=== PATIENT | male | born 1990 | race Caucasian/White ===

== ENCOUNTER 2022-01-25 13:53 | Emergency (ER) | payer SELFPAY ==
--- NOTE | 2022-01-25 14:07 | NUR ---
Called pt to triage with no answer. Pt not outside in surrounding areas.
--- NOTE | 2022-01-25 14:07 | NUR ---
PATIENT LEFT WITHOUT BEING SEEN BY . NO FURTHER CARE PROVIDED FOR PATIENT.
--- NOTE | 2022-01-25 14:24 | NUR ---
PT TAKEN TO LOBBY IN WHEELCHAIR WITH MOTHER
--- NOTE | 2022-01-25 14:45 | NUR ---
called to triage no answer
[2022-01-25] MEDS ORDERED: IBUP-1842 PO (17:13)
== END 2022-01-25 14:07 | disposition left against medical advice (07) ==
LOC: MED 13:53
DX: M25.539 Pain in unspecified wrist (principal); Z53.21 Procedure and treatment not carried out due to patient leaving prior to being seen by health care provider

== ENCOUNTER 2022-01-25 15:39 | Emergency (ER) | payer SELFPAY ==
[~2022-01-25] VITALS: Ht 182.9 cm; Wt 81.6 kg
[2022-01-25 15:48] VITALS: BP 125/72
[2022-01-25] MEDS ORDERED: KETOROLAC 30 MG/ML VIAL IM ONE (16:50)
[2022-01-25] MEDS ORDERED: IBUP-1842 PO (17:13)
--- NOTE | 2022-01-25 17:28 | NUR ---
PT WAS GIVEN A LEFT THUMB SPICA SPLINT PER MID-LEVEL ORDER, PT TOLERATED THE SPLINT WELL. +CMS BEFORE AND AFTER APPLICATION
--- NOTE | 2022-01-25 17:51 | NUR ---
Patient discharged with v/s stable. Written and verbal after care instructions given and explained with teachback. Patient verbalized understanding. Ambulatory with steady gait. All questions addressed prior to discharge. Advised to follow up with PMD.
[2022-01-25 17:53] VITALS: BP 120/70
== END 2022-01-25 17:53 | disposition home or self-care (01) ==
LOC: MED 15:39
DX: S63.502A Unspecified sprain of left wrist, initial encounter (principal); S30.0XXA Contusion of lower back and pelvis, initial encounter; Z79.899 Other long term (current) drug therapy; W50.0XXA Accidental hit or strike by another person, initial encounter; Y93.67 Activity, basketball; Y92.89 Other specified places as the place of occurrence of the external cause; Y99.8 Other external cause status
CPT/HCPCS: 29125; 72080; 73110; 96372; 99284; J1885